=== PATIENT | male | born 1965 | race African-American/Black ===

== ENCOUNTER 2023-11-09 05:48 | Emergency (ER) | payer OTHER ==
[~2023-11-09] VITALS: Ht 170.2 cm; Wt 109.1 kg
[2023-11-09 05:57] VITALS: TEMP 97.7
[2023-11-09 06:11] LABS: GLUCOMETER DEV NAME(LOC) ER.6; GLUCOSE,POINT OF CARE 127 MG/DL (70-110)
[2023-11-09] MEDS ORDERED: ACYC400T20 PO (06:15)
[2023-11-09] MEDS ORDERED: MECLIZINE HCL 25 MG TABLET PO ONE (06:15)
[2023-11-09] MEDS ORDERED: ONDANSETRON HCL 4 MG/2 ML VIAL IVP ONE (06:15)
[2023-11-09] MEDS ORDERED: METO50 PO (06:18)
[2023-11-09] MEDS ORDERED: HYDR25TA2 PO (06:18)
[2023-11-09] MEDS ORDERED: ROSU10TA72 PO (06:18)
[2023-11-09] MEDS ORDERED: SPIR-37 PO (06:18)
[2023-11-09] MEDS ORDERED: LOSA-382 PO (06:18)
[2023-11-09] MEDS ORDERED: ASPI-1450 PO (06:18)
[2023-11-09] MEDS ORDERED: ALLO-97 PO (06:18)
[2023-11-09] MEDS ORDERED: METF750T57 PO (06:18)
[2023-11-09 06:40] LABS: BASOPHILS % (AUTO) 0.8 % (0.0-2.0); EOSINOPHILS % (AUTO) 3.6 % (1.0-6.0); HEMATOCRIT 45.4 % (41-53); HEMOGLOBIN 15.9 g/dL (13.5-17.5); LYMPHOCYTES # (AUTO) 2.6 K/uL (1.0-4.8); LYMPHOCYTES % (AUTO) 34.7 % (22.0-44.0); MEAN CORPUSCULAR HEMOGLOBIN 28.4 pg (26.0-34.0); MEAN CORPUSCULAR VOLUME 81 fL (80-100); MONOCYTES % (AUTO) 12.8 % (2.0-9.0); NEUTROPHILS # (AUTO) 3.6 K/uL (1.8-7.7); NEUTROPHILS % (AUTO) 48.1 % (40.0-70.0); PLATELET COUNT (AUTO) 245 K/uL (150-450); RED BLOOD CELL COUNT(AUTO) 5.59 MIL/uL (4.50-5.90); RED CELL DISTRIBUTION WIDTH 15.3 % (11.5-14.5); WHITE BLOOD COUNT (AUTO) 7.5 K/uL (4.5-11.0)
[2023-11-09 06:50] LABS: ANION GAP 15 mmol/L (8-16); CALCIUM, TOTAL 9.6 mg/dL (8.8-10.5); CARBON DIOXIDE 25 mmol/L (22-29); CHLORIDE 100 mmol/L (98-107); CREATININE 1.43 mg/dL (0.60-1.30); GLOMERULAR FILTR. RATE CALC > 60 mL/min (>60); GLUCOSE,RANDOM 157 mg/dL (70-110); POTASSIUM 3.2 mmol/L (3.5-5.1); SODIUM SERUM 140 mmol/L (136-145); UREA NITROGEN, BLOOD 20 mg/dL (7-18)
[2023-11-09 07:02] LABS: COVID AG,FIA SOURCE NASAL SWAB
[2023-11-09] MEDS ORDERED: ASPIRIN 325 MG TABLET PO ONE (07:15)
[2023-11-09 07:17] LABS: ALANINE AMINOTRANSFERASE 35 U/L (12-78); ALBUMIN 4.2 g/dL (3.4-5.0); ALKALINE PHOSPHATASE 73 U/L (46-116); ASPARTATE AMINOTRANSFERASE 17 U/L (15-37); BILIRUBIN,TOTAL 0.5 mg/dL (0.1-1.0); CREATINE KINASE, TOTAL ONLY 171 U/L (39-308); TOTAL PROTEIN, SERUM 7.6 g/dL (6.4-8.2)
[2023-11-09 07:30] LABS: TROPONIN I-HIGH SENSITIVITY 9 ng/L (<76)
[2023-11-09 07:32] LABS: SARS-COV2 (COVID) ANTIGEN,FIA Negative (Negative)
[2023-11-09 07:39] LABS: B-TYPE NATRIURETIC PEPTIDE < 5 pg/mL (0-100)
[2023-11-09 08:26] VITALS: BP 145/93; PULSE 61; RESP 18
== END 2023-11-09 10:05 | disposition admitted as inpatient to this hospital (09) ==
LOC: EMS 05:48
DX: R07.89 Other chest pain (principal); R55 Syncope and collapse; E11.9 Type 2 diabetes mellitus without complications; E78.00 Pure hypercholesterolemia, unspecified; I10 Essential (primary) hypertension; Z98.890 Other specified postprocedural states; Z20.822 Contact with and (suspected) exposure to COVID-19
CPT/HCPCS: 99285; 96374; 70450; 71045; 87426; 80053; 82550; 82962; 83880; 84484; 85025; 36415; 93005; J2405